=== PATIENT | female | born 1950 | race Caucasian/White ===

== ENCOUNTER → 2016-05-04 | Outpatient (CLI) | payer OTHER, MEDICARE ==
[2016-05-04 12:51] LABS: BASO % 0.6 %; BASO ABS # 0.05 K/uL (0-0.2); EOS % 2.4 %; HEMATOCRIT 33.3 % (37-47); IG% 0.1 %; LYMPH % 27.8 %; LYMPH ABS # 2.24 K/uL (1.2-3.4); MEAN CELL VOLUME 72.2 fL (80-100); MEAN CORPUSCULAR HGB CONC 29.1 g/dl (32-36); MEAN PLATELET VOLUME 10.2 fL (7.4-10.4); MONO % 7.2 %; NEUT % 61.9 %; PLATELET COUNT 477 K/uL (130-400); RED BLOOD COUNT 4.61 M/uL (4.2-5.4); URINE APPEARANCE CLOUDY (CLEAR); URINE BILIRUBIN NEG (NEG); URINE COLOR DK YELLOW; URINE EPITHELIAL CELL AUTO >30 /lpf (0-5); URINE NITRITE NEG (NEG); URINE PH 6.5 (4.5-7.5); URINE SPECIFIC GRAVITY 1.013 (1.000-1.030); UROBILINOGEN NEG (NEG); WHITE BLOOD COUNT 8.07 K/uL (4.8-10.8)
[2016-05-04 12:55] LABS: MANUAL MICROSCOPIC REQUIRED? NO; REVIEW REQ? YES
[2016-05-04 13:26] LABS: ALT/SGPT 24 U/L (12-78); BLOOD UREA NITROGEN 14 mg/dl (7-18); BUN/CREATININE RATIO 11.6 (10-20); CALCIUM 8.8 mg/dl (8.5-10.1); CARBON DIOXIDE 23 mmol/L (21-32); CHLORIDE 106 mmol/L (98-107); CHOLESTEROL 207 mg/dl (0-200); GLUCOSE 145 mg/dl (70-99); POTASSIUM 4.3 mmol/L (3.5-5.1); SODIUM 140 mmol/L (136-145); TRIGLYCERIDES 210 mg/dl (0-150); VERY LOW DENSITY LIPOPROT CALC 42 mg/dl
[2016-05-04 13:36] LABS: ALB/GLOB RATIO 0.9 (0.9-2); ALKALINE PHOSPHATASE 114 U/L (45-117); AST/SGOT 13 U/L (15-37); CHOLESTEROL/HDL RATIO 4.2; ESTIMATED AVERAGE GLUCOSE 123 mg/dl; HA1C FLAG Normal (Normal); HDL CHOLESTEROL 49 mg/dl; LDL CHOLESTEROL CALCULATED 116 mg/dl
[2016-05-04 13:37] LABS: ANISOCYTOSIS PRESENT; COMPLETE YES; MICROCYTOSIS PRESENT
--- NOTE | 2016-05-11 13:03 | CODING QUERY MEDICAL NECESSITY ---
CQSUPPORTING DIAGNOSIS NEEDED A supporting diagnosis is required for the test/procedure performed on this patient in order for us to be reimbursed by the patient's insurance. Please provide a supporting diagnosis for the following test/procedure listed below next to the test name along with your signature. *If there is no additional diagnosis for this patient that would support the following test/procedure please document that below next to the test/procedure. Test(s)/Procedure(s) that require a supporting diagnosis: DOS 05/04/16 GLYCATED HEMOGLOBIN TEST Provider Signature: Date: Thank you Estephania Lizama Health Information Management Once completed, please kindly fax back to [phone] For questions please call [phone]
== END | disposition home or self-care (01) ==
LOC: C.LABPBG 07:35
PROVIDERS: ATTEND Neuromusculoskeletal Medicine & OMM
DX: E88.81 Metabolic syndrome and other insulin resistance (principal); Z00.00 Encounter for general adult medical examination without abnormal findings; Z86.39 Personal history of other endocrine, nutritional and metabolic disease

== ENCOUNTER → 2016-06-01 | Outpatient (CLI) | payer OTHER, MEDICARE ==
[~2016-06-01] MED LIST: FERR1TAB13 PO; GLC/500 PO; HYDR25TA4 PO; LEVO112T4 PO; LISI-729 PO; MISCCAP80 PO
== END | disposition home or self-care (01) ==
LOC: C.MAMM 15:12
PROVIDERS: ATTEND Neuromusculoskeletal Medicine & OMM
DX: Z00.00 Encounter for general adult medical examination without abnormal findings (principal); E88.81 Metabolic syndrome and other insulin resistance; M85.852 Other specified disorders of bone density and structure, left thigh

== ENCOUNTER → 2016-08-03 | Outpatient (CLI) | payer OTHER, MEDICARE ==
[2016-08-03 13:18] LABS: HEMATOCRIT 34.4 % (37-47); MEAN CELL VOLUME 69.9 fL (80-100); MEAN CORPUSCULAR HEMOGLOBIN 19.7 pg (25-34); MEAN CORPUSCULAR HGB CONC 28.2 g/dl (32-36); MEAN PLATELET VOLUME 9.8 fL (7.4-10.4); PLATELET COUNT 437 K/uL (130-400); RED BLOOD COUNT 4.92 M/uL (4.2-5.4); WHITE BLOOD COUNT 7.45 K/uL (4.8-10.8)
[2016-08-03 13:19] LABS: ANISOCYTOSIS PRESENT; BASO % 0.8 %; BASO ABS # 0.06 K/uL (0-0.2); COMPLETE YES; EOS % 2.3 %; IG% 0.3 %; LYMPH % 29.4 %; LYMPH ABS # 2.19 K/uL (1.2-3.4); MICROCYTOSIS PRESENT; MONO % 7.9 %; NEUT % 59.3 %
[2016-08-03 17:42] LABS: ALT/SGPT 20 U/L (12-78); AST/SGOT 8 U/L (15-37); BLOOD UREA NITROGEN 17 mg/dl (7-18); BUN/CREATININE RATIO 13.8 (10-20); CALCIUM 9.1 mg/dl (8.5-10.1); CARBON DIOXIDE 26 mmol/L (21-32); CHLORIDE 104 mmol/L (98-107); CHOLESTEROL 199 mg/dl (0-200); GLUCOSE 104 mg/dl (70-99); POTASSIUM 3.8 mmol/L (3.5-5.1); SODIUM 141 mmol/L (136-145); TRIGLYCERIDES 188 mg/dl (0-150); VERY LOW DENSITY LIPOPROT CALC 38 mg/dl
[2016-08-03 17:51] LABS: ALB/GLOB RATIO 0.9 (0.9-2); ALKALINE PHOSPHATASE 90 U/L (45-117); CHOLESTEROL/HDL RATIO 4.3; HDL CHOLESTEROL 46 mg/dl; LDL CHOLESTEROL CALCULATED 115 mg/dl; THYROID STIMULATING HORMONE 0.474 uIu/ml (0.300-4.500); TOTAL IRON BINDING CAPACITY 448 mcg/dl (250-450)
== END | disposition home or self-care (01) ==
LOC: C.LABPBG 10:07
PROVIDERS: ATTEND Neuromusculoskeletal Medicine & OMM
DX: Z00.00 Encounter for general adult medical examination without abnormal findings (principal); Z11.59 Encounter for screening for other viral diseases; E88.81 Metabolic syndrome and other insulin resistance; E03.9 Hypothyroidism, unspecified; D50.9 Iron deficiency anemia, unspecified

== ENCOUNTER → 2016-12-21 | Day surgery (SDC) | payer OTHER, MEDICARE ==
[2016-12-15 10:19] VITALS: BMI 35.0
[~2016-12-21] VITALS: Ht 165.1 cm; Wt 95.5 kg
[~2016-12-21] MED LIST changes: +ATROPINE SULFATE 0.1 MG/ML 5ML SYR IV PRN; +EpHEDrine SULFATE INJ 50 MG/ML AMP IV PRN; +LIDOCAINE HCL 2% 2 ML VIAL (20MG/ML) ONE; +MIDAZOLAM HCL 1 MG/ML 2ML VIAL ONE; +PROPOFOL IV EMULSION 10 MG/ML 20 ML VIAL IV ONE; +SODIUM CHLORIDE 0.9% 500ML 500 ML IV ONE
[2016-12-21 13:21] VITALS: Ht 165.1 cm; Wt 95.5 kg
--- NOTE | 2016-12-21 13:29 | Endo History and Physical ---
History & Physical Date of Service: Dec 21, 2016. Chief Complaint: Screening Referring Physician: Dr. Ho History of Present Illness 66 yo CF who presents for screening colonoscopy. Past Surgical History Hx Cardiac Surgery: No Hx Internal Defibrillator: No Hx Pacemaker: No Hx Abdominal Surgery: Yes ([facility] B[facility], ) Hx of Implantable Prosthesis: No Hx Post-Op Nausea and Vomiting: No Hx Cancer Surgery: No Hx Thoracic Surgery: No Hx Orthopedic: No Hx Urinary Tract Surgery: No Family History None Social History Smoking Status: Never Smoker Hx Substance Use: No Hx Alcohol Use: No Allergies Coded Allergies: No Known Allergies (Unverified , 12/21/16) Current Medications Reported Home Medications Medications Dose Route/Sig Max Daily Dose Days Date Category Probiotic (Probiotic Product) 1 Cap Cap 1 Cap PO HS 12/15/16 Reported Kp Ferrous Sulfate (Ferrous Sulfate) 325 Mg Tab 1 Tab PO BID 12/15/16 Reported Levothyroxine Sodium 112 Mcg Tab 1 Tab PO QAM 12/15/16 Reported Glucophage (Metformin Hcl) 500 Mg Tab 500 Mg PO BID 12/15/16 Reported Hctz (Hydrochlorothiazide) 25 Mg Tab 25 Mg PO QAM 12/15/16 Reported Zestril (Lisinopril) 5 Mg Tab 5 Mg PO QAM 12/15/16 Reported Vital Signs Weight (Kilograms): 95.45 Height (Feet): 5 Height (Inches): 5 Date Time Temp Pulse Resp B/P (MAP) Pulse Ox O2 Delivery O2 Flow Rate FiO2 12/21/16 13:23 36.8 79 18 181/92 (121) 96 Room Air Physical Exam General Appearance: WD/WN, no apparent distress Respiratory/Chest: Auscultation: breath sounds normal Cardiovascular: Heart Auscultation: RRR Abdomen: Bowel Sounds: normal Inspection & Palpation: soft, non-distended, no tenderness, guarding & rebound Assessment and Plan Assessment: 66 yo CF who presents for screening colonoscopy. Plan: Proceed with colonoscopy.
--- NOTE | 2016-12-21 14:20 | GI REPORT ---
Procedure Date: 12/21/2016 1:45 PM Procedure: Colonoscopy Indications: Screening for colorectal malignant neoplasm Medicines: Monitored Anesthesia Care Complications: No immediate complications. Estimated Blood Loss: Estimated blood loss: none. Procedure: Pre-Anesthesia Assessment: - Prior to the procedure, a History and Physical was performed, and patient medications and allergies were reviewed. The patient's tolerance of previous anesthesia was also reviewed. The risks and benefits of the procedure and the sedation options and risks were discussed with the patient. All questions were answered, and informed consent was obtained. Prior Anticoagulants: The patient has taken no previous anticoagulant or antiplatelet agents. ASA Grade Assessment: II - A patient with mild systemic disease. After reviewing the risks and benefits, the patient was deemed in satisfactory condition to undergo the procedure. After I obtained informed consent, the scope was passed under direct vision. Throughout the procedure, the patient's blood pressure, pulse, and oxygen saturations were monitored continuously. The Scope was introduced through the anus and advanced to the terminal ileum. The colonoscopy was performed without difficulty. The patient tolerated the procedure well. The quality of the bowel preparation was good. The terminal ileum, ileocecal valve, appendiceal orifice, and rectum were photographed. Findings: The perianal and digital rectal examinations were normal. Multiple small-mouthed diverticula were found in the sigmoid colon, in the descending colon and in the transverse colon. Non-bleeding internal hemorrhoids were found during retroflexion. The hemorrhoids were small. Impression: - Diverticulosis in the sigmoid colon, in the descending colon and in the transverse colon. - Non-bleeding internal hemorrhoids. - No specimens collected. Recommendation: - Resume previous diet. - Continue present medications. - Repeat colonoscopy in 10 years for surveillance. - Return to primary care physician as previously scheduled. Roberto Minaya DO 12/21/2016 2:20:10 PM This report has been signed electronically. Note Initiated On: 12/21/2016 1:45 PM I attest to the content of the Intraoperative Record and orders documented therein, exceptions below
--- NOTE | 2016-12-21 14:31 | Anesthesiology Progress Note ---
Anesthesia Post Op Note Date & Time Dec 21, 2016 at 14:31 Vital Signs Pain Intensity: 0 Vital Signs Past 12 Hours Date Time Temp Pulse Resp B/P (MAP) Pulse Ox O2 Delivery O2 Flow Rate FiO2 12/21/16 13:23 36.8 79 18 181/92 (121) 96 Room Air Notes Mental Status: alert / awake / arousable, participated in evaluation Pt Amnestic to Procedure: Yes Nausea / Vomiting: adequately controlled Pain: adequately controlled Airway Patency, RR, SpO2: stable & adequate BP & HR: stable & adequate Hydration State: stable & adequate Anesthetic Complications: no major complications apparent
[2016-12-21 14:49] VITALS: BP 152/90; PULSE 67; O2SAT 97
--- NOTE | 2016-12-21 14:56 | Discharge Instructions ---
Endoscopy Patient Instructions Date / Procedure(s) Performed Dec 21, 2016. Colonoscopy Allergy Information Coded Allergies: No Known Allergies (Unverified , 12/21/16) Discharge Date / Findings Dec 21, 2016. Diverticulosis Internal hemorrhoids Medication Instructions OK to resume all medications today as prescribed Reported Home Medications Medications Dose Route/Sig Max Daily Dose Days Date Category Probiotic (Probiotic Product) 1 Cap Cap 1 Cap PO HS 12/15/16 Reported Kp Ferrous Sulfate (Ferrous Sulfate) 325 Mg Tab 1 Tab PO BID 12/15/16 Reported Levothyroxine Sodium 112 Mcg Tab 1 Tab PO QAM 12/15/16 Reported Glucophage (Metformin Hcl) 500 Mg Tab 500 Mg PO BID 12/15/16 Reported Hctz (Hydrochlorothiazide) 25 Mg Tab 25 Mg PO QAM 12/15/16 Reported Zestril (Lisinopril) 5 Mg Tab 5 Mg PO QAM 12/15/16 Reported Provider Instructions Activity Restrictions - No exercising or heavy lifting for 24 hours. - Do not drink alcohol the day of the procedure. - Do not drive a car or operate machinery until the day after the procedure. - Do not make any important decisions or sign important papers in 24 hours after the procedure. Following Day: - Return to full activity which may include returning to work/school. Diet Start your diet with liquids and light foods (jello, soup, juice, toast). Then eat your usual diet if not nauseated. Treatment For Common After Affects For mild abdominal pain, bloating, or excessive gas: - Rest - Eat lightly - Lie on right side Follow-Up Information Follow-up with DR. ROSAS as scheduled Anesthesia Information What You Should Know You have had a procedure that required some medicine to reduce anxiety and discomfort. This treatment is called moderate sedation. After receiving the treatment, you may be sleepy, but you will be able to breathe on your own. The effects of the treatment may last for several hours. Follow these instructions along with Activity/Diet recommendations noted above: * Do NOT do anything where dizziness or clumsiness would be dangerous. * Rest quietly at home today, then you can be up and about tomorrow. * Have a responsible person stay with you the rest of today. * You may have had an I.V. today. If so, you may take the dressing off later today. Recommendations Call your doctor if: * Trouble breathing * Continuous vomiting for more than 24 hours * Temperature above 101 degrees * Severe abdominal pain or bloating * Pain not relieved by pain medicine ordered * There is increased drainage or redness from any incision * A large amount of rectal bleeding greater than 2-3 tablespoons. (If you had a polyp/s removed or have hemorrhoids, a small amount of blood - from the rectum is to be expected.) * You have any unanswered questions or concerns. IN THE EVENT OF A SERIOUS EMERGENCY, GO TO THE NEAREST EMERGENCY ROOM Your discharge instructions were prepared by provider Roberto Minaya. Patient Instructions Signature Page Mirta Stuart Patient (or Guardian) Signature/Date: I have read and understand the instructions given to me by my caregivers. Caregiver/RN/Doctor Signature/Date: The above-named patient and/or guardian has received patient instructions on this date. + Original Patient Signature Page (only) stays with chart. Please make copy for patient.
== END | disposition home or self-care (01) ==
LOC: C.GI 13:01
PROVIDERS: ATTEND Internal Medicine
DX: Z12.11 Encounter for screening for malignant neoplasm of colon (principal); K57.90 Diverticulosis of intestine, part unspecified, without perforation or abscess without bleeding; K64.8 Other hemorrhoids; Z90.710 Acquired absence of both cervix and uterus; E11.9 Type 2 diabetes mellitus without complications; Z79.899 Other long term (current) drug therapy; E03.9 Hypothyroidism, unspecified; I10 Essential (primary) hypertension; E88.81 Metabolic syndrome and other insulin resistance

== ENCOUNTER → 2017-03-08 | Outpatient (CLI) | payer OTHER, MEDICARE ==
[~2017-03-08] MED LIST changes: -ATROPINE SULFATE 0.1 MG/ML 5ML SYR IV PRN; -EpHEDrine SULFATE INJ 50 MG/ML AMP IV PRN; -LIDOCAINE HCL 2% 2 ML VIAL (20MG/ML) ONE; -MIDAZOLAM HCL 1 MG/ML 2ML VIAL ONE; -PROPOFOL IV EMULSION 10 MG/ML 20 ML VIAL IV ONE; -SODIUM CHLORIDE 0.9% 500ML 500 ML IV ONE
[2017-03-08 12:24] LABS: HEMOGLOBIN A1C 5.3 % (4.5-5.6)
[2017-03-08 12:27] LABS: BLOOD UREA NITROGEN 25 mg/dl (7-18); CALCIUM 9.1 mg/dl (8.5-10.1); CARBON DIOXIDE 26 mmol/L (21-32); CHOLESTEROL 219 mg/dl (0-200); CREATININE 1.37 mg/dl (0.60-1.20); GLUCOSE 107 mg/dl (70-99); SODIUM 139 mmol/L (136-145)
[2017-03-08 12:30] LABS: LDL CHOLESTEROL CALCULATED 132 mg/dl
== END | disposition home or self-care (01) ==
LOC: C.LABPBG 08:09
PROVIDERS: ATTEND Family Medicine
DX: E03.9 Hypothyroidism, unspecified (principal); I10 Essential (primary) hypertension; N18.3 Chronic kidney disease, stage 3 (moderate); E88.81 Metabolic syndrome and other insulin resistance

== ENCOUNTER → 2017-09-10 | Outpatient (CLI) | payer OTHER, MEDICARE ==
[2017-09-10 13:29] LABS: HEMATOCRIT 42.5 % (37-47); HEMOGLOBIN 13.9 g/dL (12.0-16.0); MEAN CELL VOLUME 90.8 fL (80-100); MEAN CORPUSCULAR HEMOGLOBIN 29.7 pg (25-34); MEAN CORPUSCULAR HGB CONC 32.7 g/dl (32-36); MEAN PLATELET VOLUME 11.5 fL (7.4-10.4); PLATELET COUNT 261 K/uL (130-400); RED CELL DISTRIBUTION WIDTH SD 46.7 fL (36.4-46.3); WHITE BLOOD COUNT 7.29 K/uL (4.8-10.8)
[2017-09-10 13:50] LABS: ALBUMIN 3.6 gm/dl (3.4-5.0); ALKALINE PHOSPHATASE 86 U/L (45-117); ALT/SGPT 30 U/L (12-78); AST/SGOT 14 U/L (15-37); BLOOD UREA NITROGEN 12 mg/dl (7-18); CALCIUM 8.3 mg/dl (8.5-10.1); CARBON DIOXIDE 27 mmol/L (21-32); CHOLESTEROL 132 mg/dl (0-200); CREATININE 1.37 mg/dl (0.60-1.20); GLUCOSE 118 mg/dl (70-99); LDL CHOLESTEROL CALCULATED 42 mg/dl; POTASSIUM 3.7 mmol/L (3.5-5.1); SODIUM 140 mmol/L (136-145); TOTAL PROTEIN 7.3 gm/dl (6.4-8.2)
== END | disposition home or self-care (01) ==
LOC: C.LABPBG 08:40
PROVIDERS: ATTEND Family Medicine
DX: E78.5 Hyperlipidemia, unspecified (principal); N18.3 Chronic kidney disease, stage 3 (moderate); E03.9 Hypothyroidism, unspecified

== ENCOUNTER 2025-01-15 06:38 | Observation (INO) ==
--- NOTE | 2024-11-28 09:28 | PAT Medication Instructions ---
Medication Instructions Date of Service November 28, 2024 Home Medications Medication Instructions Recorded metformin 500 mg tablet 500 mg PO BID #180 tabs 10/11/24 multivitamin 1 tab PO QAM metformin 500 mg tablet 500 mg PO BID glucosamine HCl 1,500 mg tablet 1,500 mg PO QAM turmeric root extract 1 cap PO QAM acetaminophen 500 mg tablet (Acetaminophen Extra Strength) 1,000 mg PO BID allopurinol 100 mg tablet 300 mg PO QAM atorvastatin 20 mg tablet 20 mg PO QAM cholecalciferol (vitamin D3) 50 mcg (2,000 unit) capsule 50 mcg PO QAM hydrochlorothiazide 12.5 mg tablet 25 mg PO QAM levothyroxine 112 mcg tablet 112 mcg PO QAM losartan 100 mg tablet 100 mg PO QAM potassium chloride 20 mEq tablet,extended release 20 meq PO QAM STOP taking 2 weeks before surgery (or as soon as possible if surgery is within 2 weeks) glucosamine HCl 1,500 mg tablet 1,500 mg PO QAM turmeric root extract 1 cap PO QAM DO NOT take the morning of surgery multivitamin 1 tab PO QAM metformin 500 mg tablet 500 mg PO BID cholecalciferol (vitamin D3) 50 mcg (2,000 unit) capsule 50 mcg PO QAM hydrochlorothiazide 12.5 mg tablet 25 mg PO QAM losartan 100 mg tablet 100 mg PO QAM potassium chloride 20 mEq tablet,extended release 20 meq PO QAM Take morning of surgery With a small sip of water, OTHERWISE NOTHING TO EAT OR DRINK AFTER MIDNIGHT: acetaminophen 500 mg tablet (Acetaminophen Extra Strength) 1,000 mg PO BID allopurinol 100 mg tablet 300 mg PO QAM atorvastatin 20 mg tablet 20 mg PO QAM levothyroxine 112 mcg tablet 112 mcg PO QAM Take evening before surgery metformin 500 mg tablet 500 mg PO BID acetaminophen 500 mg tablet (Acetaminophen Extra Strength) 1,000 mg PO BID Other Notes If you have any questions please call us at [phone] or [phone] or [phone] or [phone]
--- NOTE | 2024-12-04 13:13 | Anesthesiology Consultation ---
Date of Service December 04, 2024 Assessment & Plan (1) Encounter for pre-operative examination: Chart Review Chart Review: Acceptable Risk for Surgery and Patient seen in Pre Admission Testing - Check BSG AM DOS Pt currently scheduled as 23 hours observation. If surgeon decides to change patient to Same Day Joint, patient would be acceptable risk for DILIP, pending patient is motivated, has good support and surgeon's office completes Same Day Joint Program preop requirements. Per PAT appt on 12/04/24, no recent illness/disease exposures, illness related symptoms, or recent illness/disease positive tests. Will leave to surgeon's discretion if preop Covid testing needed Teaching & Discussion Pre-Anesthesia Teaching/Discussion Notes: Instructed NPO after midnight before surgery,except medications with 15 cc of water. Medication instructions provided according to the PAT guidelines. History Surgery Operation Date: 01/15/25 11:00 Proposed Procedures p Right Total Hip Arthroplasty Anterior - Celso Pina, DO Height/Weight Height: 5 ft 5 in Weight: 98.6 kg Allergies Allergy/AdvReac Type Severity Reaction Status Date / Time lisinopril AdvReac Intermediate Cough Verified 11/24/24 11:15 Medications Home Medications Medication Instructions Recorded Confirmed Last Taken multivitamin 1 tab PO QAM 10/09/18 11/24/24 Unknown metformin 500 mg tablet 500 mg PO BID #180 tabs 10/11/24 11/24/24 Unknown glucosamine HCl 1,500 mg tablet 1,500 mg PO QAM 10/12/24 11/24/24 Unknown turmeric root extract 1 cap PO QAM 10/12/24 11/24/24 Unknown acetaminophen 500 mg tablet 1,000 mg PO BID 11/24/24 11/24/24 Unknown (Acetaminophen Extra Strength) allopurinol 100 mg tablet 300 mg PO QAM 11/24/24 11/24/24 Unknown atorvastatin 20 mg tablet 20 mg PO QAM 11/24/24 11/24/24 Unknown cholecalciferol (vitamin D3) 50 50 mcg PO QAM 11/24/24 11/24/24 Unknown mcg (2,000 unit) capsule hydrochlorothiazide 12.5 mg tablet 25 mg PO QAM 11/24/24 11/24/24 Unknown levothyroxine 112 mcg tablet 112 mcg PO QAM 11/24/24 11/24/24 Unknown losartan 100 mg tablet 100 mg PO QAM 11/24/24 11/24/24 Unknown potassium chloride 20 mEq 20 meq PO QAM 11/24/24 11/24/24 Unknown tablet,extended release Past Medical History Medical History Chronic kidney disease (CKD), stage 3 monitoring Dyslipidemia Gout no recent flares Hypertension Hypothyroidism Metabolic syndrome Prediabetes on Metformin Exercise / Class Metabolic Activity II 4-5 Yardwork/Stairs/Walk up hill (one flight of stairs - no chest pain or SOB ) Past Family History Family History Father Cardiac disorder Hypertension Myocardial infarction age: 59 Mother Hypertension Cancer Ovarian cancer age: 65 Denies family history of Colon cancer Prostate cancer Breast cancer Past Surgical History Surgical History H/O: section (1987) History of colonoscopy History of wisdom tooth extraction S/P total abdominal hysterectomy (2001) with removal of both ovaries Secondary to fibroid and FH of ovarian Cancer Past Anesthesia History No Hx of Anesthesia Complications and No Family Hx of Anesthesia Complications History of PONV No Hx of PONV and No Hx of Motion Sickness Social History Smoking Status: Never smoker Do You Dip or Chew Tobacco: No Hx Alcohol Use: No Hx Substance Use: No substance use type: does not use Review of Systems Patient denies chest pain, shortness of breath, dyspnea on exertion, reflux, cough, wheezing, palpitations. No hx of seizures, stroke, GA, apnea/snoring. No hx of blood clots or blood transfusions Physical Exam Vital Signs VITALS BP 147/90 P 83 TEMP 98.0 SP02 95% RESP 16 Constitutional no acute distress ENMT Mouth: no TMJ clicking Thyromental Distance: > or= 3.5 Finger Breadths (3.5) Mallampati Class: III Broken molar (right side) Caps to side teeth Neck + limited neck extension (mild) Respiratory normal respiratory effort; no respiratory distress Auscultation: lungs clear to auscultation bilaterally; no wheezes Cardiovascular Rate/Rhythm: regular rate and regular rhythm Heart Sounds: no murmur Vessels: no carotid bruit Musculoskeletal Spine: no pain with cervical ROM Extremities: extremities normal to inspection Psychiatric Orientation: alert Lab Results Anesthesia Preop Results Results Anesthesia Widget: WBC 8.85 K/ul (4.8-10.8) 12/04/24 Hgb 14.2 g/dl (12.0-16.0) 12/04/24 Hct 41.7 % (37.0-47.0) 12/04/24 Plt 270 K/uL (130-400) 12/04/24 Na 139 mmol/L (136-145) 12/04/24 K 3.8 mmol/L (3.5-5.1) 12/04/24 Cl 102 mmol/L (98-107) 12/04/24 CO2 28 mmol/L (21-32) 12/04/24 BUN 19 mg/dl (6-23) 12/04/24 Creat 1.25 mg/dl (0.6-1.2) H 12/04/24 Glucose Level 107 mg/dl (70-99(Fasting)) H 12/04/24 PT 10.6 Seconds (9.0-12.0) 12/04/24 PTT 25 Seconds (21-31) 12/04/24 INR 1.0 (0.9-1.1) 12/04/24 HA1c 6.1 % (4.5-5.6) H 12/04/24 Blood Type A Positive 12/04/24 Antibody Screen NEGATIVE 12/04/24 Testing Electrocardiogram Date: 12/04/24 Findings: + NSR @ (72bpm) Left axis deviation Minimal voltage criteria for LVH, may be normal variant Chest X-Ray Date: 12/04/24 Findings: + NAD
--- NOTE | 2025-01-11 12:19 | History & Physical Report ---
Date of Service January 11, 2025 Assessment & Plan (1) Osteoarthritis of right hip: We will proceed with a right anterior total hip arthroplasty. Postoperatively, she will be started on aspirin for DVT prophylaxis and kept overnight in the hospital for postop medical management. She plans to have the hospital set up home health at discharge. History of Present Illness Chief Complaint: Osteoarthritis of the right hip. Primary Care Provider: Lashay Ho DO Kalina is a pleasant 74-year-old female who has been dealing with chronic increasing right hip and groin pain. X-rays and clinical examination have been diagnostic for advanced osteoarthritis of the right hip. She has been treated by another provider in our office. After failing conservative treatment. she has elected proceed with a right total hip arthroplasty. Allergies Allergy/AdvReac Type Severity Reaction Status Date / Time lisinopril AdvReac Intermediate Cough Verified 11/24/24 11:15 Home Medications Medication Instructions Recorded Confirmed Type multivitamin 1 tab PO QAM 10/09/18 11/24/24 History metformin 500 mg tablet 500 mg PO BID #180 tabs 10/11/24 11/24/24 Rx glucosamine HCl 1,500 mg tablet 1,500 mg PO QAM 10/12/24 11/24/24 History turmeric root extract 1 cap PO QAM 10/12/24 11/24/24 History acetaminophen 500 mg tablet 1,000 mg PO BID 11/24/24 11/24/24 History (Acetaminophen Extra Strength) allopurinol 100 mg tablet 300 mg PO QAM 11/24/24 11/24/24 History atorvastatin 20 mg tablet 20 mg PO QAM 11/24/24 11/24/24 History cholecalciferol (vitamin D3) 50 50 mcg PO QAM 11/24/24 11/24/24 History mcg (2,000 unit) capsule hydrochlorothiazide 12.5 mg tablet 25 mg PO QAM 11/24/24 11/24/24 History levothyroxine 112 mcg tablet 112 mcg PO QAM 11/24/24 11/24/24 History losartan 100 mg tablet 100 mg PO QAM 11/24/24 11/24/24 History potassium chloride 20 mEq 20 meq PO QAM 11/24/24 11/24/24 History tablet,extended release Past Med/Surg History Problem List (Updated 01/11/25 @ 12:18 by Celso Pina DO) Osteoarthritis of right hip Gout Vitamin D insufficiency Prediabetes Chronic right-sided thoracic back pain Kidney disease, chronic, stage III (GFR 30-59 ml/min) Hypothyroidism Dyslipidemia Diverticulosis Benign essential hypertension Arthritis Internal hemorrhoids Medical History Chronic kidney disease (CKD), stage 3 monitoring Hypertension Metabolic syndrome Prediabetes on Metformin Gout no recent flares Hypothyroidism Dyslipidemia Surgical History History of wisdom tooth extraction History of colonoscopy S/P total abdominal hysterectomy (2001) with removal of both ovaries Secondary to fibroid and FH of ovarian Cancer H/O: section (1987) Family History Father Cardiac disorder Hypertension Myocardial infarction age: 59 Mother Hypertension Cancer Ovarian cancer age: 65 Denies family history of Colon cancer Prostate cancer Breast cancer Social History Smoking Status: Never smoker Second Hand Exposure: No; Do You Dip or Chew Tobacco: No; Tobacco Cessation Education Requested by Patient: No Hx Alcohol Use: No Hx Substance Use: No Preferred Language: Romanian Communication Ability: Effective Visual Impairment: No Limitations Hearing Ability: Normal 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 Required: No Beliefs That Will Affect Care: None marital status: Current Living Situation: Alone current occupational status: employed 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 Physical Exam On physical exam of the right hip, she has decreased range of motion. She has pain with internal/external rotation. All of her pain is located in the groin.. Constitutional WD/WN, vitals as above Eyes PERRL, conjunctivae normal, anicteric sclerae ENMT external ear and nose normal, oropharynx normal Neck trachea midline, no thyromegaly Respiratory normal respiratory effort Cardiovascular RRR, no murmur, no edema Gastrointestinal (Abdomen) normal bowel sounds, soft, nontender, no hepatosplenomegaly Psychiatric A+Ox3, euthymic affect Results & Data Results & Data Laboratory Results . Diagnostic Findings . PG Care Time/CCT Total # of Minutes Spent Total Time Spent with Patient: Total time spent is greater than 50% in coordination of care (as documented) at patient's floor/unit and/or counseling patient: Coding Level of Care Code None Diagnoses Osteoarthritis of right hip M16.11
--- NOTE | 2025-01-15 06:26 | History & Physical Bridge Note ---
Date of Service January 15, 2025 History & Physical Bridge Note I have examined the patient, reviewed the History & Physical and in the interval since the performance of the History & Physical I have noted the following changes of clinical significance: no changes noted
[~2025-01-15 06:38] MED LIST changes: +BUPIVACAINE 0.5 % 5 MG/1 ML PF 10ML VIAL ONE; -FERR1TAB13 PO; -GLC/500 PO; -HYDR25TA4 PO; -LEVO112T4 PO; -LISI-729 PO; -MISCCAP80 PO
[2025-01-15] MEDS: dexAMETHasone**PF** 10 MG/ML VIAL IV SCH (07:12)
[2025-01-15] MEDS: FAMOTIDINE 20 MG TAB PO SCH (07:12)
[2025-01-15] MEDS: GABAPENTIN 300 MG CAP PO SCH (07:12)
[2025-01-15] MEDS: ACETAMINOPHEN 500 MG TAB PO SCH ×2 (07:13→13:13)
[2025-01-15] MEDS: LR 60ML/HR IV SCH (07:13)
[2025-01-15] MEDS: LR 500ML BOLUS, THEN 15ML/HR IV SCH (07:13)
[2025-01-15] MEDS ORDERED: MIDAZOLAM HCL 1 MG/ML 2ML VIAL ONE ×2 (07:19→07:50)
[2025-01-15] MEDS ORDERED: PROPOFOL IV EMULSION 10 MG/ML 20 ML VIAL IV ONE (07:20)
[2025-01-15] MEDS: TRANEXAMIC ACID 1,000 MG **IV Pre-op IV SCH (07:34)
[2025-01-15] MEDS ORDERED: PROMETHAZINE HCL 6.25 MG in SODIUM CHLORIDE 0.9% 50 ML IV PRN (07:34)
[2025-01-15] MEDS ORDERED: ATROPINE SULFATE 0.1 MG/ML 10ML SYR IV PRN (07:34)
[2025-01-15] MEDS ORDERED: PHENYLEPHRINE 100MCG/ML 5ML SYR ONE (07:49)
[2025-01-15] MEDS ORDERED: PHENYLEPHRINE HCL 10 MG/ML VIAL ONE (08:10)
[2025-01-15] MEDS: ROPIV 0.5% 246mg, Ketorolac 30mg, EPINEPHrine 0.5mg in NSS INFIL SCH (08:27)
[2025-01-15] MEDS: ORTHO JOINT ANESTHETIC ONE (08:28)
[2025-01-15] MEDS ORDERED: ePHEDrine sulfate 50 MG/5 ML SYR ONE (08:29)
--- NOTE | 2025-01-15 08:49 | Operative Report ---
PG Post Operative Report Pre & Post Diagnosis Operation Date: 01/15/25 08:00 Pre-Op Diagnosis: Osteoarthritis of right hip Post-Op Diagnosis: Osteoarthritis of right hip I identified the patient and participated in the time-out.: Yes Procedure Operation Date: 01/15/25 08:00 Actual Procedures p Right Anterior Total Hip Arthroplasty(Right) - Celso Pian DO Surgeon Celso Pina DO Certified Massage Therapist Lenora Hays PA-C Estimated Blood Loss 250 Findings Consistent with Post-Op Diagnosis Specimens Right femoral head Description of Procedure Implants used I used a [employer]immer[employer] total hip arthroplasty system with a size 3 standard Z1 stem, a 50 mm G7 cup, an E1 polyethylene liner, a 36 mm ceramic head with a +3.5 neck. Mirta arrived at the hospital for the above procedure. She was seen in the preoperative holding area and the operative extremity was identified and signed. She was given a spinal anesthetic, a preoperative antibiotic, and TXA. She was then taken back to the operating room and laid on the table in the supine position. She was given basic sedation. The operative leg was secured to a Puristst leg positioner. The hip was then prepped and draped in sterile fashion. A timeout was done and the patient and the operative extremity was properly identified. An anterior approach was used. Dissection was taken down through the fascia and the tensor muscle belly was retracted laterally and the rectus was retracted medially. The circumflex vessels were identified and ligated. The capsule was then incised and tagged for later repair. The femoral neck was then cut and the femoral head was removed. The acetabulum was exposed. Time was spent doing a complete circumferential labral release. Sequential reaming of the acetabulum up to a size 49 reamer was done. Final reamings were done under fluoroscopy to ensure appropriate version. A Biomet 50 mm G7 cup was then impacted into place. The E1 polyethylene liner was then snapped into place. Surrounding soft tissues were then injected with 100 cc of an orthopedic pain control cocktail. The proximal femur was then exposed. Sequential broaching up to a size 3 broach was done. Off that broach a size 36 head with a +3.5 neck was trialed. The hip was reduced and fluoroscopic images showed anatomic alignment of the implants in acceptable length. The broach was removed. The final size 3 standard offset Z1 stem was then impacted into place. A ceramic 36 mm head with a +3.5 neck was then impacted onto the stem and the hip was reduced. Final fluoroscopic images showed anatomic alignment of the hip. The capsule was then closed with #1 Vicryl suture. Irrisept was then done for 3 minutes. The joint was then irrigated with normal saline solution. The fascia was closed with #1 PDS suture. Skin was closed with 2-0 Vicryl, Sarbjit Zipline, and a Silverlon dressing. She was then transferred to a hospital bed and taken to the post anesthesia care unit in stable condition. She tolerated the procedure well. Lenora Hays PA-C, was present for the entire procedure. He was critical for patient positioning, prepping, draping, retraction exposure, wound closure and application of sterile dressing. I attest to the content of the Intraoperative Record and any orders documented therein. Any exceptions are noted below.
--- NOTE | 2025-01-15 09:38 | XRay Report ---
XR hip 1V RT w pelvis CLINICAL HISTORY: IN PACU - Post Surgical COMPARISON: None FINDINGS: Right hip prosthesis shows no hardware complication. There is expected soft tissue gas. Th ere are chronic calcifications inferior lateral to the left ischium, likely sequela of old injury. IMPRESSION: Postoperative exam as described. ACT 112: Negative or not required by law. Electronically signed by: Alex Lebron M.D. 01/15/2025 9:37 AM
[2025-01-15] MEDS: ONDANSETRON INJ 2 MG/ML 2 ML VIAL IV PRN (09:53)
--- NOTE | 2025-01-15 10:47 | Anesthesiology Progress Note ---
Date of Service January 15, 2025 Anesthesia Post Procedure Vital Signs Vital Signs: Temp Pulse Pulse Resp BP Pulse Ox O2 Del Method 01/15/25 10:43 68 18 124/77 98 Room Air 01/15/25 10:00 71 17 114/57 L 96 Room Air 01/15/25 09:50 36.7 C 73 15 106/61 99 Room Air 01/15/25 09:40 78 24 116/61 97 Room Air 01/15/25 09:30 81 16 121/68 98 Room Air 01/15/25 09:20 88 25 H 118/65 99 Room Air 01/15/25 09:14 36 C L 93 H 17 110/62 97 Room Air 01/15/25 06:56 92 H 20 154/100 H 96 Room Air 01/15/25 06:50 36.7 C 106 H 20 197/117 H 96 Room Air Transfer of Care Handoff Completed per policy Notes Mental Status: alert / awake / arousable Patient Amnestic to Procedure: Yes Nausea / Vomiting: adequately controlled Pain: adequately controlled Airway Patency, RR, SpO2: stable & adequate BP & HR: stable & adequate Hydration State: stable & adequate Neuraxial Anesthesia: was administered and sensory block is resolving Anesthetic Complications: no major complications apparent and Pt Satisfied with anesthetic care
[2025-01-15] MEDS ORDERED: NALOXONE HCL 0.4 MG/1 ML VIAL/CARP IV PRN (10:48)
[2025-01-15] MEDS ORDERED: METOCLOPRAMIDE HCL INJ 5 MG/ML 2 ML VIAL IV PRN (10:48)
[2025-01-15] MEDS ORDERED: MAGNESIUM HYDROXIDE SUSP 30 ML UDC PO PRN (10:48)
[2025-01-15] MEDS ORDERED: diphenhydrAMINE Capsule 25 MG CAP PO PRN (10:48)
[2025-01-15] MEDS ORDERED: ONDANSETRON INJ 2 MG/ML 2 ML VIAL IV PRN (10:48)
[2025-01-15] MEDS ORDERED: PHARMACY GLYCEMIC MGMT CONSULT PRN (10:48)
--- NOTE | 2025-01-15 10:50 | Fluoroscopy Report ---
FL hip RT 1V CLINICAL HISTORY: RT TOTAL HIP COMPARISON STUDY: None FLUOROSCOPY TIME: 18 seconds FLUOROSCOPY IMAGES: 1 EXPOSURE DOSE: 3.7 mGy FINDINGS: Fluoroscopy was provided for right hip prosthesis. IMPRESSION: Intraoperative fluoroscopy. ACT 112: Negative or not required by law. Electronically signed by: Alex Lebron M.D. 01/15/2025 10:49 AM
--- NOTE | 2025-01-15 11:10 | Pharmacy Report ---
Pharmacy Glycemic Short Note 2 - Date of Service January 15, 2025 - Glycemic Short BSG Results (Last 24 hours): 01/15/25 01/15/25 06:54 10:16 POC Glucose 151 H 181 H OUTPATIENT ANTIDIABETIC REGIMEN: * Metformin 500mg twice daily * HbA1c: 6.1% (12/04/24) - pre-diabetes * CKD stage III ASSESSMENT: * Mirta is a 74 year old female with prediabetes who presents 01/15 for a right hip arthroplasty * AM glucose was 151, lunch glucose was 181 - slightly above goal range * Received dexamethasone 10mg x1 pre-op @0700 this AM * Give 5 units of insulin glargine now to cover anticipated increase in BSG due to steroid * Scale for glargine this evening in case of persistent high BSGs * Novolog for meal coverage in between stress of 1 and 2 given patient is insulin naive, only on metformin at home * T2DM diet * Will start metformin 01/16 with breakfast, just insulin coverage for today PLAN FOR INPATIENT GLYCEMIC CONTROL: * Hold outpatient oral diabetes medications for today - restart metformin 01/16 with breakfast * Basal insulin * Lantus 5 units SQ x1, Lantus scale (0 units for BSG <180, 5 units for BSG >180) * Bolus insulin * NovoLog per scale ACHS or Q6hrs while NPO * Goal Range: Low 120 mg/dL - High 160 mg/dL * Correction Factor: 25 mg/dL/unit * Nutritional / Prandial insulin per carb ratio of 1 unit per 10 grams CHO consumed
[2025-01-15] MEDS: SODIUM CHLORIDE 0.9% 1,000 ML IV SCH (11:26)
[2025-01-15] MEDS: KETOROLAC TROMETHAMINE 15 MG/ML VIAL IV SCH (12:20)
[2025-01-15] MEDS: INSULIN ASPART PER UNIT CHARGE SC SCH (12:20)
[2025-01-15] MEDS: LANTUS PER UNIT CHARGE SC ONE (12:21)
[2025-01-15] MEDS: SENNA 8.6 MG TAB PO SCH (20:53)
[2025-01-15] MEDS: DOCUSATE SODIUM 100 MG CAP PO SCH (20:53)
[2025-01-15] MEDS: ASPIRIN 81 MG ECTAB PO SCH (20:53)
[2025-01-15] MEDS: LANTUS PER UNIT CHARGE SC SCH (20:54)
[2025-01-15] MEDS: NYSTATIN POWDER 15GM BTL EXT PRN (21:00)
[2025-01-16 03:34] VITALS: O2SAT 98
[2025-01-16] MEDS: LEVOTHYROXINE SODIUM 112 MCG TABLET PO SCH (05:53)
--- NOTE | 2025-01-16 07:33 | Orthopedic Progress Note ---
Date of Service January 16, 2025 Assessment & Plan (1) S/P total right hip arthroplasty: * Continue Current Treatment * Disposition: home * Daily treatment: Physical Therapy/ Occupational Therapy per protocol * Weight bearing status: WBAT, no hip precautions * Continue to monitor for ABLA * Pain control * DVT prophylaxis, ASA * Office/hospital f/u 2 weeks for progress check and staple/suture removal * Plan for discharge today pending PT/OT clearance * Ok for dressing change prior to discharge Subjective .Active Problems: S/p right DILIP POD 1 74 y/o female s/p right DILIP. Doing well overall, pain managed and improved function. Denies fever/chills, chest pain/SOB, nausea/vomiting. Otherwise no complaints. Review of Systems All systems reviewed & are unremarkable except as noted in HPI & below. Physical Exam . * General: Alert and oriented, no acute distress * Constitutional: well-developed, well-nourished. * Respiratory: Normal respiratory effort, no distress * Gastrointestinal: No tenderness to palpation, no rigidity or guarding. * Skin: No rash or lesion. * Neurologic: Grossly normal * Musculoskeletal: right hip surgical dressing with bloody saturation, not removed for exam. Otherwise no obvious deformity or overlying skin changes. Diffuse TTP proximal thigh and hip region. Otherwise no specific tenderness of distal thigh, lower leg, foot/ankle. AROM hip flexion intact. AROM foot/ankle intact. Sensation intact plantar/dorsal foot. Brisk capillary refill. Results & Data Results & Data Laboratory Results . Diagnostic Findings . Hip X-Ray 01/15/25 08:00 FL hip RT 1V CLINICAL HISTORY: RT TOTAL HIP COMPARISON STUDY: None FLUOROSCOPY TIME: 18 seconds FLUOROSCOPY IMAGES: 1 EXPOSURE DOSE: 3.7 mGy FINDINGS: Fluoroscopy was provided for right hip prosthesis. IMPRESSION: Intraoperative fluoroscopy. ACT 112: Negative or not required by law. Electronically signed by: Alex Lebron M.D. 01/15/2025 10:49 AM Hip/Pelvis X-Ray 01/15/25 09:18 XR hip 1V RT w pelvis CLINICAL HISTORY: IN PACU - Post Surgical COMPARISON: None FINDINGS: Right hip prosthesis shows no hardware complication. There is ex pected soft tissue gas. There are chronic calcifications inferior lateral to the left ischium, likely sequela of old injury. IMPRESSION: Postoperative exam as described. ACT 112: Negative or not required by law. Electronically signed by: Alex Lebron M.D. 01/15/2025 9:37 AM PG Care Time/CCT Total # of Minutes Spent Total Time Spent with Patient: Total time spent is greater than 50% in coordination of care (as documented) at patient's floor/unit and/or counseling patient: Coding Level of Care Code 39341 Post Operative Follow-Up Diagnoses S/P total right hip arthroplasty Z96.641
[2025-01-16 07:40] VITALS: PULSE 67; RESP 14; TEMP 98.4
[2025-01-16] MEDS: CHOLECALCIFEROL 25 MCG (1000 UNITS) TAB PO SCH (09:17)
[2025-01-16] MEDS: ATORVASTATIN 20 MG TAB PO SCH (09:17)
[2025-01-16] MEDS: MULTIVITAMIN TAB PO SCH (09:18)
[2025-01-16] MEDS: hydroCHLOROthiazide 25 MG TAB PO SCH (09:18)
[2025-01-16] MEDS: LOSARTAN POTASSIUM 50 MG TAB PO SCH (09:18)
[2025-01-16] MEDS: POTASSIUM CHLORIDE CRTAB 20 MEQ TABCR PO SCH (09:21)
[2025-01-16] MEDS: INFLUENZA VACC TS2025-26(65y+)/PF (IIV3) 0.5mL Syr IM ONE (12:07)
[2025-01-16 12:29] VITALS: BP 123/76
== END 2025-01-16 13:33 | disposition home or self-care (01) ==
LOC: ASU 06:38 → 3E 06:38